=== PATIENT | female | born 1995 | race African-American/Black ===

== ENCOUNTER 2017-11-01 08:54 | Emergency (ER) | payer OTHER ==
--- NOTE | 2017-11-01 10:24 | ED ---
HPI Febrile Illness - HPI Summary HPI Summary: Patient is a 22-year-old female presenting to the ED with complaint of fever, pain in the upper back, halitosis and fatigue. She states she was diagnosed with mono by [facility] last week. She was having persistent fevers at that time, but this improves 2 days ago. Yesterday however the fever returned. Mother was concerned and brings her in on this date. Patient denies any fevers, sweats, chills this time. Still endorses extreme fatigue, but denies any other symptoms. She still has a persistent ache to the upper back, but denies any posterior cervical spine tenderness. She denies any stiffness in the neck. Denies any photophobia or headache. Denies nausea, vomiting, constipation, diarrhea, abdominal pain, back pain otherwise. She states she is feeling much improved since yesterday. She did hike a few weeks ago and may have gotten a tick bite, but she did not see the tick and there was no rash development. She was concerned over Lyme disease. Strep test negative last week. Denies any dysphagia or odynophagia. Vital signs are stable on arrival. - History of Current Complaint Chief Complaint: EDFever Time Seen by Provider: 11/01/17 09:42 Hx Obtained From: Patient Onset/Duration: Started Hours Ago Timing: Constant Initial Severity: Moderate Current Severity: Moderate Pain Intensity: 4 Pain Scale Used: 0-10 Numeric Aggravating Factors: Nothing Alleviating Factors: Nothing Associated Signs and Symptoms: Negative Related History: Recent Tick Bite - possible - Risk Factors Pseudomonas Risk Factors: Negative Serious Bacterial Infection Risk Factors: Negative - Allergy/Home Medications Allergies/Adverse Reactions: Allergies Allergy/AdvReac Type Severity Reaction Status Date / Time No Known Allergies Allergy Verified 11/01/17 09:27 Home Medications: Home Medications Ibuprofen TAB* [Advil TAB*] 400 mg PO Q6H PRN 11/01/17 [History Confirmed ] PMH/Surg Hx/FS Hx/Imm Hx Previously Healthy: Yes Respiratory History: Denies: Hx Asthma - Immunization History Hx Pertussis Vaccination: No Immunizations Up to Date: Unable to Obtain/Confirm Infectious Disease History: Yes Infectious Disease History: Denies: Traveled Outside the [place] in Last 30 Days - Social History Occupation: Unemployed, Student Lives: Dormitory/Roommates Alcohol Use: None Hx Substance Use: No Substance Use Type: Reports: None Hx Tobacco Use: No Review of Systems Constitutional: Negative Negative: Fever, Chills, Fatigue, Skin Diaphoresis Negative: Palpitations, Chest Pain Negative: Shortness Of Breath, Cough Genitourinary: Negative Positive: no symptoms reported, see HPI Positive: Myalgia - upper back. Negative: Arthralgia Skin: Negative Neurological: Negative All Other Systems Reviewed And Are Negative: Yes Physical Exam Triage Information Reviewed: Yes Vital Signs On Initial Exam: Initial Vitals Temp Pulse Resp BP Pulse Ox 97.8 F 77 16 103/59 100 11/01/17 09:28 11/01/17 09:28 11/01/17 09:28 11/01/17 09:28 11/01/17 09:28 Vital Signs Reviewed: Yes Appearance: Positive: Well-Appearing, Well-Nourished Skin: Positive: Warm, Skin Color Reflects Adequate Perfusion Head/Face: Positive: Normal Head/Face Inspection Eyes: Positive: EOMI, ADRIEL, Conjunctiva Clear Neck: Positive: Supple, No Lymphadenopathy Respiratory/Lung Sounds: Positive: Clear to Auscultation, Breath Sounds Present Cardiovascular: Positive: RRR, Pulses are Symmetrical in both Upper and Lower Extremities Musculoskeletal: Positive: Normal, Strength/ROM Intact Neurological: Positive: Speech Normal Psychiatric: Positive: Normal, Affect/Mood Appropriate AVPU Assessment: Alert Diagnostics - Vital Signs Vital Signs Temp Pulse Resp BP Pulse Ox 11/01/17 09:28 97.8 F 77 16 103/59 100 - Laboratory Result Diagrams: 11/01/17 10:31 11/01/17 10:31 Lab Statement: Any lab studies that have been ordered have been reviewed, and results considered in the medical decision making process. Course/Dx - Course Course Of Treatment: Labs obtained which are unremarkable. Strep test negative. Lyme test serology obtained and awaiting results. Lab work discussed with patient and mother. She will follow-up with corneal for any worsening or changing symptoms, however she is asymptomatic and vital signs stable at this time. - Febrile Illness Differential Diagnoses: Pneumonia - Diagnoses Provider Diagnoses: Fever Discharge - Sign-Out/Discharge Documenting (check all that apply): Discharge/Admit/Transfer - Discharge Plan Condition: Stable Disposition: HOME Referrals: [facility] - Gerard OTTO [Primary Care Provider] - Additional Instructions: Please follow up with [facility] in 1-2 days If you develop any worsening left upper quadrant pain - return to the ED Rest Fluids Ibuprofen for any fevers - Billing Disposition and Condition Condition: STABLE Disposition: Home
[2017-11-01 10:42] LABS: ABS Basophils 0.1 10^3/ul (0-0.2); ABS Eosinophils 0 10^3/ul (0-0.6); ABS Lymphocytes 4.9 10^3/ul (1.0-4.8); ABS Monocytes 1.1 10^3/ul (0-0.8); ABS Neutrophils 3.5 10^3/ul (1.5-7.7); ABS Nucleated RBC 0 10^3/ul; Eosinophil % 0.4 % (0-6); Hematocrit 32 % (35-47); Hemoglobin 10.5 g/dl (12.0-16.0); Lymphocyte % 50.9 % (25-47); Mean Corpuscular HGB Conc 33 g/dl (31-36); Mean Corpuscular Hemoglobin 28 pg (27-31); Mean Corpuscular Volume 84 fL (80-97); Mean Platelet Volume 6.6 um3 (7.4-10.4); Nucleated Red Blood Cells % 0.1; Platelet Count 371 10^3/ul (150-450); Red Blood Count 3.77 10^6/ul (4.00-5.40); Red Cell Distribution Width 14 % (10.5-15); White Blood Count 9.6 10^3/ul (3.5-10.8)
[2017-11-01 10:58] LABS: EGFR Non-African American 129.9 (>60)
[2017-11-01 12:01] VITALS: BP 103/72
== END 2017-11-01 11:59 | disposition home or self-care (01) ==
LOC: ED 08:54
DX: R50.9 Fever, unspecified (principal); M54.9 Dorsalgia, unspecified
CPT/HCPCS: 36415; 80053; 85025; 86140; 86618; 87651; 99282